=== PATIENT | male | born 1965 | race Caucasian/White ===

== ENCOUNTER → 2020-02-16 | Outpatient (CLI) | payer OTHER ==
--- NOTE | 2020-02-16 15:50 | RADIOLOGY REPORT (SQ) ---
EXAM DESCRIPTION: U/S RETROPERITON (RENAL/AORTA) IMAGES COMPLETED DATE/TIME: 02/16/2020 3:16 pm REASON FOR STUDY: (R31.9)HEMATURIA, UNSPECIFIED R31.9 HEMATURIA, UNSPECIFIED COMPARISON: None. TECHNIQUE: Dynamic and static grayscale images acquired of the kidneys and bladder and recorded on P ACS. Additional selected color Doppler and spectral images recorded. LIMITATIONS: None. FINDINGS: RIGHT KIDNEY: Normal size. Normal echogenicity. No solid or suspicious masses. No hydronep hrosis. No calcifications. LEFT KIDNEY: Normal size. Normal echogenicity. No solid or suspicious masses. No hydronephrosis. No calcifications. BLADDER: No masses. OTHER FINDINGS: No other significant finding. IMPRESSION: NORMAL RENAL AND BLADDER ULTRASOUND. TECHNICAL DOCUMENTATION: JOB ID: [id number] 2010 [employer]- All Rights Reserved Reading location - IP/workstation name: [email or web address]
--- OUTSIDE RECORDS SUMMARY | 2020-02-17 15:41 | XMS REPORT ---
:1965 Author Organization [facility] Address [address] [address] Care Team Providers Name Role Phone Mary Beth Attending Clinician Unavailable Allergies, Adverse Reactions, Alerts This patient has no known allergies or adverse reactions. Medications This patient has no known medications. Problems This patient has no known problems. Procedures Procedure Date / Time Performed Performing Clinician Dianna wilburn OFFICE/OUTPATIENT VISIT EST 2018-03-18 16:15:00 OFFICE/OUTPATIENT VISIT EST 2018-02-16 14:45:00 OFFICE/OUTPATIENT VISIT EST 2017-05-21 10:45:00 OFFICE/OUTPATIENT VISIT EST 2017-04-07 09:00:00 OFFICE/OUTPATIENT VISIT EST 2017-03-03 14:45:00 Results Test Description Test Time Test Comments Text Results Atomic Results Result Comments URINE CULTURE\S\ 2020-01-26 16:18:00 Test Item Value Reference Range Comments URINE CULTURE (test code = URC) See Comment URIC [id number] 16:08:003.4LIPID PANEL WITH REFLEX TO DIRECT [id number] 16:08:00 Test Item Value Reference Range Comments CHOL/HDLC RATIO (test code = 60106100) 3.8 (calc) <5.0 HDL CHOLESTEROL (test code = 31591676) 37 mg/dL >40 CHOLESTEROL, TOTAL (test code = 07254165) 141 mg/dL <200 TRIGLYCERIDES (test code = 73814405) 298 mg/dL <150 LDL-CHOLESTEROL (test code = 84926738) 68 mg/dL (calc) NON HDL CHOLESTEROL (test code = 21496631) 104 mg/dL (calc) <130 CBC (INCLUDES DIFF/PLT)2018-05-31 16:08:00 Test Item Value Reference Range Comments RDW (test code = 35500428) 13.9 % 11.0-15.0 MCV (test code = 05096970) 97.9 fL 80.0-100.0 RED BLOOD CELL COUNT (test code = 33209080) 4.87 Million/uL 4.20 -5.80 NEUTROPHILS (test code = 02307110) 56.8 % ABSOLUTE NEUTROPHILS (test code = 86227245) 4146 cells/uL 1500 -7800 MPV (test code = 33560431) 11.3 fL 7.5-12.5 ABSOLUTE EOSINOPHILS (test code = 34772051) 131 cells/uL 15-5 00 MCHC (test code = 66003752) 34.2 g/dL 32.0-36.0 HEMOGLOBIN (test code = 98378949) 16.3 g/dL 13.2-17.1 ABSOLUTE LYMPHOCYTES (test code = 38897963) 2248 cells/uL 850- 3900 WHITE BLOOD CELL COUNT (test code = 7.3 Thousand/uL 3.8-10.8 60350789) ABSOLUTE BASOPHILS (test code = 67693810) 37 cells/uL 0-200 ABSOLUTE MONOCYTES (test code = 64384398) 737 cells/uL 200-95 0 BASOPHILS (test code = 10929541) 0.5 % LYMPHOCYTES (test code = 30640197) 30.8 % PLATELET COUNT (test code = 17667052) 180 Thousand/uL 140-400 EOSINOPHILS (test code = 91182818) 1.8 % HEMATOCRIT (test code = 40884499) 47.7 % 38.5-50.0 MONOCYTES (test code = 16971200) 10.1 % MCH (test code = 97187558) 33.5 pg 27.0-33.0 COMPREHENSIVE METABOLIC [id number] 16:08:00 Test Item Value Reference Range Comments eGFR (test code = 100 mL/min/1.73m2 > OR = 60 04241690) ALT (test code = 32435067) 40 U/L 9-46 GLUCOSE (test code = 85385107) 107 mg/dL 65-99 GLOBULIN (test code = 05365337) 2.3 g/dL (calc) 1.9-3.7 CALCIUM (test code = 21728844) 9.6 mg/dL 8.6-10.3 ALBUMIN/GLOBULIN RATIO (test code = 1.9 (calc) 1.0-2.5 56626845) BILIRUBIN, TOTAL (test code = 0.7 mg/dL 0.2-1.2 81445683) SODIUM (test code = 52531269) 140 mmol/L 135-146 UREA NITROGEN (BUN) (test code = 15 mg/dL 7-25 52283415) CHLORIDE (test code = 78602025) 103 mmol/L 98-110 BUN/CREATININE RATIO (test code = NOT APPLICABLE (calc) 6-22 95779273) POTASSIUM (test code = 90982372) 3.8 mmol/L 3.5-5.3 AST (test code = 87539302) 26 U/L 10-35 PROTEIN, TOTAL (test code = 77921085) 6.6 g/dL 6.1-8.1 ALKALINE PHOSPHATASE (test code = 107 U/L 40-115 63038209) eGFR NON-AFR. NIGERIAN (test code = 86 mL/min/1.73m2 > OR = 60 29709741) CARBON DIOXIDE (test code = 61908174) 27 mmol/L 20-32 CREATININE (test code = 95411278) 0.99 mg/dL 0.70-1.33 ALBUMIN (test code = 38276865) 4.3 g/dL 3.6-5.1 [id number] 16:08:001.72CBC with [id number] 08:23:00 Test Item Value Reference Range Comments WBC (test code = 743085) 15.3 K/uL 3.8-10.8 MCV (test code = 248351) 98.1 fL 80.0-100.0 Baso % (test code = 909434) 0 % RBC (test code = 663468) 5.20 MIL/uL 4.20-5.80 MCH (test code = 377079) 34.0 pg 27.0-33.0 Platelet Count (test code = 265 K/uL 140-400 047795) Hemoglobin (test code = 458897) 17.7 g/dL 13.2-17.1 MCHC (test code = 155337) 34.7 g/dL 32.0-36.0 MPV (test code = 419413) 10.9 fL 7.5-12.5 [place] % (test code = 783561) 8 % Smear Review (test code = Criteria for review not met 442975) Absolute Baso (test code = 0 cells/uL 0-200 427168) Absolute Eos (test code = 0 cells/uL 15-500 624361) Eos % (test code = 375979) 0 % Absolute Neut (test code = 52599 cells/uL 8275-8117 921055) Hematocrit (test code = 282884) 51.0 % 38.5-50.0 Neutrophils % (test code = 74 % 245770) Lymph % (test code = 172628) 18 % RDW (test code = 975973) 13.5 % 11.0-15.0 Absolute Lymph (test code = 2754 cells/uL 850-3900 082284) Absolute [place] (test code = 1224 cells/uL 200-950 366017) CMP with Estimated [id number] 08:23:00 Test Item Value Reference Range Comments ALT/SGPT (test code = 532072) 87 U/L 9-46 Calcium (test code = 031177) 9.8 mg/dL 8.6-10.3 Glucose (test code = 347759) 106 mg/dL 65-99 Alkaline Phosphatase (test code = 356956) 90 U/L 40-115 Est GFR, NonAfrican [place] (test code = 793295) 63 mL/min >=60 Chloride (test code = 753258) 102 mmol/L 98-110 Total Protein (test code = 442054) 7.1 g/dL 6.1-8.1 AST/SGOT (test code = 698076) 38 U/L 10-35 Bilirubin, Total (test code = 401941) 1.2 mg/dL 0.2-1.2 BUN (test code = 669765) 34 mg/dL 7-25 Sodium (test code = 574659) 139 mmol/L 135-146 CO2 (test code = 190765) 26 mmol/L 20-31 Albumin (test code = 948958) 4.7 g/dL 3.6-5.1 Creatinine (test code = 537332) 1.28 mg/dL 0.70-1.33 Potassium (test code = 404144) 4.5 mmol/L 3.5-5.3 Est GFR, (test code = 026586) 73 mL/min > =60 Iron and [id number] 08:23:00 Test Item Value Reference Range Comments TIBC (test code = 081169) 456 ug/dL 250-425 Iron, Total (test code = 407864) 199 ug/dL 50-180 UIBC (test code = 940247) 257 ug/dL 125-400 %SAT (test code = 688945) 44 % 15-60 [id number] 08:23:00 Test Item Value Reference Range Comments Ferritin (test code = 955936) 255 ng/mL 20-380 Acute Hepatitis Panel (Refl)2017-05-18 08:23:00 Test Item Value Reference Range Comments Hepatitis C Antibody (test code = 291867) NEGATIVE NEGATI VE Hepatitis B Core Ab, IgM (test code = 220626) NON REACTIVE NO N REACTIVE Hepatitis A Antibody, IgM (test code = 300120) NON REACTIVE N ON REACTIVE Hepatitis B Surface Antigen (test code = NEGATIVE NEGATIV E 611295) Hemoglobin A1c with [id number] 14:28:00 Test Item Value Reference Range Comments eAG (calc) (test code = 089907) 97 mg/dL Hemoglobin A1C (test code = 490950) 5.0 % <5.7 Gamma Glutamyl Transferase (GGT)2017-04-01 14:28:00 Test Item Value Reference Range Comments Gamma GT (GGT) (test code = 100729) 69 U/L 7-51 PSA, [id number] 14:28:00 Test Item Value Reference Range Comments PSA, Total (test code = 029232) 0.8 ng/mL <=4.0 CBC with [id number] 14:28:00 Test Item Value Reference Range Comments [place] % (test code = 627103) 8 % RDW (test code = 919381) 13.2 % 11.0-15.0 Lymph % (test code = 018641) 30 % Eos % (test code = 330642) 2 % Hematocrit (test code = 273224) 50.6 % 38.5-50.0 Hemoglobin (test code = 176661) 17.4 g/dL 13.2-17.1 Neutrophils % (test code = 60 % 553200) RBC (test code = 329193) 5.16 MIL/uL 4.20-5.80 Smear Review (test code = Criteria for review not met 919729) Platelet Count (test code = 214 K/uL 140-400 565532) MCH (test code = 553565) 33.7 pg 27.0-33.0 MCV (test code = 193648) 98.1 fL 80.0-100.0 Baso % (test code = 763157) 0 % Absolute Eos (test code = 164 cells/uL 15-500 616847) MCHC (test code = 646324) 34.4 g/dL 32.0-36.0 Absolute Lymph (test code = 2460 cells/uL 850-3900 393585) Absolute Neut (test code = 4920 cells/uL 0035-4906 620465) Absolute [place] (test code = 656 cells/uL 200-950 281199) Absolute Baso (test code = 0 cells/uL 0-200 018096) MPV (test code = 012668) 10.8 fL 7.5-12.5 WBC (test code = 464382) 8.2 K/uL 3.8-10.8 CMP with Estimated [id number] 14:28:00 Test Item Value Reference Range Comments BUN (test code = 699262) 18 mg/dL 7-25 Sodium (test code = 894689) 140 mmol/L 135-146 Chloride (test code = 150362) 98 mmol/L 98-110 AST/SGOT (test code = 800370) 73 U/L 10-35 Calcium (test code = 916251) 9.9 mg/dL 8.6-10.3 Potassium (test code = 764927) 4.1 mmol/L 3.5-5.3 Total Protein (test code = 567520) 7.1 g/dL 6.1-8.1 Alkaline Phosphatase (test code = 380827) 90 U/L 40-115 Albumin (test code = 989888) 4.6 g/dL 3.6-5.1 Creatinine (test code = 845973) 1.10 mg/dL 0.70-1.33 Glucose (test code = 542483) 111 mg/dL 65-99 Est GFR, NonAfrican [place] (test code = 061645) 76 mL/min >=60 Bilirubin, Total (test code = 808795) 0.9 mg/dL 0.2-1.2 CO2 (test code = 711737) 25 mmol/L 20-31 Est GFR, (test code = 331497) 88 mL/min > =60 ALT/SGPT (test code = 988352) 109 U/L 9-46 Lipid [id number] 14:28:00 Test Item Value Reference Range Comments LDL Cholesterol (Calc) (test code = 896947) NOT CALC mg/dL <100 Total Chol/HDL Ratio (test code = 302078) 8.6 Ratio <5.0 Cholesterol (test code = 227309) 242 mg/dL <200 HDL Cholesterol (test code = 460157) 28 mg/dL >40 VLDL Cholesterol (Calc) (test code = 128659) NOT CALC mg/dL <30 Triglycerides (test code = 984380) 527 mg/dL <150 Assessments Condition Name Status Diagnosis Date Treating Clinici an Hesitancy of micturition Active Body mass index (BMI) 34.0-34.9, adult Active Obesity, unspecified Active Unsp adverse effect of drug or medicament, Active init encntr Essential (primary) hypertension Active Obesity, unspecified Active Tinea unguium Active Body mass index (BMI) 35.0-35.9, adult Active Fatty (change of) liver, not elsewhere Active classified Secondary polycythemia Active Elevated white blood cell count, unspecified Active Other specified diseases of liver Active Abnormal levels of other serum enzymes Active Mixed hyperlipidemia Active Other intervertebral disc degeneration, Active lumbosacral region Secondary polycythemia Active Other cervical disc degeneration, unsp Active cervical region Other intervertebral disc degeneration, Active lumbosacral region Idiopathic chronic gout, multiple sites, 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 [id number] 10:45:00 10:45:00 Negrito Pierson [id number] s [id number] [facility] [id number] [facility] [id number] 09:00:00 09:00:00 Negrito Pierson [id number] s [id number] [facility] [id number] [facility] [id number] 14:45:00 14:45:00 Negrito Pierson [id number] s [id number] [id number] [facility] This patient has no known social history. Vital Signs This patient has no known vital signs.
== END ==
LOC: RAD 14:59
PROVIDERS: ATTEND Family Medicine
DX: R31.9 Hematuria, unspecified (principal)
CPT/HCPCS: 76770